=== PATIENT | female | born 1930 | race Caucasian/White ===

== ENCOUNTER 2019-04-18 20:07 | Emergency (ER) | payer MEDICARE, BC ==
[2019-04-18] MEDS ORDERED: Silver Nitrate Applicator Each TOP ONE (20:22)
[2019-04-18] MEDS ORDERED: Lidocaine 1% with EPINEPHrine 1:100,000 20 ML MDV INJECT ONE (20:22)
--- NOTE | 2019-04-18 20:25 | EDM.PDOC ---
ED HPI GENERAL MEDICAL PROBLEM - General Chief Complaint: ENT Problem Stated Complaint: BLOODY NOSE Time Seen by Provider: 04/18/19 20:23 Source of Information: Reports: Patient History Limitations: Reports: No Limitations - History of Present Illness INITIAL COMMENTS - FREE TEXT/NARRATIVE: onset recurrent nose bleed few hours ago after blowing nose. had same few months ago but it stopped but not this time. like to have it cauterize - Related Data Allergies Allergy/AdvReac Type Severity Reaction Status Date / Time azithromycin Allergy Rash Verified 04/18/19 20:13 ciprofloxacin Allergy Rash Verified 04/18/19 20:13 ferrous fumarate Allergy Nausea Verified 04/18/19 20:13 triamterene Allergy Rash Verified 04/18/19 20:13 Home Meds: Home Meds Aspirin [Halfprin] 81 mg PO DAILY 06/17/13 [History] Brimonidine [Alphagan P 0.15% Ophth Soln] 1 drop EYELF BID 06/17/13 [History] Cholecalciferol (Vitamin D3) [Vitamin D] 1,000 unit PO DAILY 06/17/13 [History] [id number] 149-Hyal [Glucosamine Chondroitin Complx] 1 tab PO DAILY 06/17/13 [History] Levothyroxine [Synthroid] 1 tab PO DAILY 06/17/13 [History] Multivitamin [Multi Vitamin Daily] 1 tab PO DAILY 06/17/13 [History] Travoprost [Travatan Z 0.004% Ophth Soln] 1 drop EYEBOTH BEDTIME 06/17/13 [ History] Brinzolamide/Brimonidine Tart [Simbrinza 1%-0.2% Eye Drops] 1 drop EYERT BID [History] Clopidogrel [Plavix] 75 mg PO DAILY 10/08/17 [History] Nitroglycerin [Nitrostat] 0.4 mg PO ASDIRECTED PRN 10/08/17 [History] atorvaSTATin [Lipitor] 40 mg PO DAILY 10/08/17 [History] carvediloL [Carvedilol] 3.125 mg PO BID 10/31/17 [History] Past Medical History HEENT History: Reports: Glaucoma Cardiovascular History: Reports: ID, PTCA Other Cardiovascular History: Mitral Valve prolapse Gastrointestinal History: Reports: Diverticulosis Other Gastrointestinal History: Rectal polapse repair Endocrine/Metabolic History: Reports: Hypothyroidism Other Dermatologic History: Melanoma left face. 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 - Past Surgical History Female Surgical History: Reports: Hysterectomy Other Musculoskeletal Surgeries/Procedures:: History of bilateral bunionectomy ED ROS ENT - Review of Systems Review Of Systems: Comprehensive ROS is negative, except as noted in HPI. ED EXAM, ENT - Physical Exam Exam: See Below Exam Limited By: No Limitations General Appearance: Alert, WD/WN, Mild Distress, Other (discomfort) Ears: Hearing Grossly Normal Nose: Active Bleeding, Dried Blood, Other (right hasslebach) Mouth/Throat: Normal Inspection Head: Atraumatic Neck: Non-Tender, Full Range of Motion Respiratory/Chest: No Respiratory Distress Cardiovascular: Regular Rate, Rhythm GI/Abdominal: Soft, Non-Tender Neurological: Alert, Oriented, Normal Cognition, Normal Gait, No Motor/Sensory Deficits Psychiatric: Normal Affect, Normal Mood Skin: Warm, Dry, Normal Color Lymphatic: No Adenopathy ED ENT PROCEDURES - Epistaxis Procedure Indication: Epistaxis Recent anticoagulants/antiplatlets: Yes Uncontrolled HTN: No Recent septal/nasal surgery: No Site of bleeding: Right Nare Clearing of clots: Suction Topical Meds: Other (lido w/epi) Ice pack to area: No Chemical cautery: Silver Nitrate Topical Complications: No Course - Vital Signs Last Recorded V/S: Last Vital Signs Temp 36.4 C 04/18/19 20:14 Pulse 69 04/18/19 20:14 Resp 18 04/18/19 20:14 BP 136/72 04/18/19 20:14 Pulse Ox 95 04/18/19 20:14 - Orders/Labs/Meds Meds: Medications Discontinued Medications Generic Name Dose Route Start Last Admin Trade Name Lizbet PRN Reason Stop Dose Admin Lidocaine/Epinephrine 20 ml 04/18/19 20:22 04/18/19 20:30 Xylocaine 1% With Epinephrine 1:100,000 INJECT 04/18/19 20:23 20 ml ONETIME ONE Administration Silver Nitrate 1 each 04/18/19 20:22 04/18/19 20:29 Silver Nitrate TOP 04/18/19 20:23 1 each ONETIME ONE Administration - Re-Assessments/Exams Free Text/Narrative Re-Assessment/Exam: 04/18/19 21:07 re-exam: no further bleeding noted after 40 minutes. Departure - Departure Time of Disposition: 21:08 Disposition: Home, Self-Care 01 Condition: Good Clinical Impression: Epistaxis - Discharge Information Instructions: Nosebleed, [id number] Forms: ED Department Discharge Additional Instructions: 1) avoid nose blowing 2) avoid stooping, bending, straining 3) recheck as needed Sepsis Event Note - Evaluation Sepsis Screening Result: No Definite Risk - Focused Exam Vital Signs: Vital Signs Temp Pulse Resp BP Pulse Ox 04/18/19 20:14 36.4 C 69 18 136/72 95 Date Exam was Performed: 04/18/19 Time Exam was Performed: 21:07
== END 2019-04-18 21:16 | disposition home or self-care (01) ==
LOC: DL.ED 20:07
DX: R04.0 Epistaxis (principal); E03.9 Hypothyroidism, unspecified; H40.9 Unspecified glaucoma; I25.2 Old myocardial infarction; Z85.820 Personal history of malignant melanoma of skin; Z88.1 Allergy status to other antibiotic agents; Z88.8 Allergy status to other drugs, medicaments and biological substances; Z95.5 Presence of coronary angioplasty implant and graft; Z79.82 Long term (current) use of aspirin; Z79.890 Hormone replacement therapy; Z79.899 Other long term (current) drug therapy; Z85.828 Personal history of other malignant neoplasm of skin
CPT/HCPCS: 30901; 99283